=== PATIENT | male | born 1960 | race Caucasian/White ===

== ENCOUNTER → 2023-03-27 14:13 | Outpatient (CLI) | payer BC, SELFPAY ==
--- NOTE | 2023-03-27 | DI.RAD_ITS ---
Exam(s) XR KNEE LT 3V AP,LAT,JEANETTE EXAM: XR KNEE LT 3V AP,LAT,JEANETTE CLINICAL HISTORY: LT KNEE PAIN-[id number]. TECHNIQUE: 2D digital imaging was performed. Three views. COMPARISON: No exams were available for comparison FINDINGS: BONES: No acute fracture is present. No bony destructive lesion is seen. JOINTS: The knee is normally aligned. A small joint effusion is seen. SOFT TISSUE: Anterior swelling. No foreign body. IMPRESSION: Joint fusion. Anterior soft tissue swelling. DATA REPOSITORY: RADIATION DOSE DELIVERED:
== END ==
PROVIDERS: Visit Provider Physician Assistant Medical
DX: M25.462 Effusion, left knee (principal)
CPT/HCPCS: 73562